=== PATIENT | female | born 2005 | race Caucasian/White ===

== ENCOUNTER 2025-04-22 18:17 | Inpatient (IN) ==
[2025-04-22 18:49] LABS: Hematocrit (blood only) 39.1 % (37.0-47.0); Hemoglobin 13.3 g/dl (12.0-16.0); Immature Granulocytes # (auto) 0.01 K/uL (0.01-0.20); Immature Granulocytes % (auto) 0.1 %; Mean Corpuscular Hemoglobin 30.5 pg (25.0-34.0); Mean Corpuscular Volume 89.7 fL (80.0-100.0); Platelet Count 220 K/uL (130-400); RDW Standard Deviation 40.3 fL (36.4-46.3); Red Blood Count 4.36 M/uL (4.20-5.40); White Blood Count 7.69 K/ul (4.8-10.8)
[2025-04-22] MEDS: ALBUT/IPRATROP 3MG/0.5MG NEB 3 ML VIAL NEB STA (18:52)
--- NOTE | 2025-04-22 18:53 | Emergency Department Note ---
ED Provider Note History of Present Illness Chief Complaint: Chest Pain Stated Complaint: CHEST PAIN, SOB, DIFFICULTY SWALLOWING Time Seen by Provider: 04/22/25 18:38 Source: patient Mode of arrival: ambulatory Limitations: no limitations Patient is a 20-year-old female who presents to the emergency department with complaints of shortness of breath, difficulty swallowing and chest pain. Patient states that she was seen at [facility] yesterday and had lab work and imaging done and noted that everything was normal per their report and she was told that she had an upper respiratory infection, however the patient felt that her symptoms had worsened over the course of the day today and she wanted to be reevaluated. The patient notes a history of asthma when she was a child but denies any respiratory issues now. 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 Current Living Situation: Parent Feels Safe at Home: Yes Safety Concerns: Feels Safe At This Time Physical Exam Vital Signs Vital Signs - 24 hr 04/22/25 18:19 04/22/25 18:34 04/22/25 18:49 Temperature 36.6 C Temperature Source Temporal Artery Scan Pulse Rate 75 77 Pulse Rate [Left Apical] 78 Respiratory Rate 20 21 Respiratory Effort / Characteristics Non-Labored Spontaneous Non-Labored Spontaneous Respiratory Depth Normal Normal Respiratory Pattern Regular Regular Blood Pressure 111/73 Blood Pressure [Left Arm] Blood Pressure [Right Arm] 109/79 Blood Pressure Mean 85 Blood Pressure Mean [Left Arm] Blood Pressure Mean [Right Arm] 89 Pulse Oximetry 97 98 Oxygen Delivery Method Room Air Room Air Sepsis Recent Fever Within 48 Hours No Sepsis New/Unexplained Change in Mental Status N/A Sepsis Action Taken by Nursing No Action Required 04/22/25 19:00 04/22/25 19:24 04/22/25 19:30 Temperature Temperature Source Pulse Rate 80 83 Pulse Rate [Left Apical] Respiratory Rate 21 21 Respiratory Effort / Characteristics Respiratory Depth Respiratory Pattern Blood Pressure 106/67 Blood Pressure [Left Arm] Blood Pressure [Right Arm] 114/62 Blood Pressure Mean 80 Blood Pressure Mean [Left Arm] Blood Pressure Mean [Right Arm] 79 Pulse Oximetry 100 99 Oxygen Delivery Method Room Air Room Air Sepsis Recent Fever Within 48 Hours Sepsis New/Unexplained Change in Mental Status Sepsis Action Taken by Nursing 04/22/25 19:39 04/22/25 19:45 04/22/25 19:56 Temperature Temperature Source Pulse Rate 84 81 Pulse Rate [Left Apical] 79 Respiratory Rate 14 17 20 Respiratory Effort / Characteristics Non-Labored Spontaneous Respiratory Depth Normal Respiratory Pattern Regular Blood Pressure Blood Pressure [Left Arm] 119/77 Blood Pressure [Right Arm] Blood Pressure Mean Blood Pressure Mean [Left Arm] 91 Blood Pressure Mean [Right Arm] Pulse Oximetry 98 99 100 Oxygen Delivery Method Room Air Room Air Room Air Sepsis Recent Fever Within 48 Hours Sepsis New/Unexplained Change in Mental Status Sepsis Action Taken by Nursing 04/22/25 20:03 04/22/25 20:39 04/22/25 21:00 Temperature Temperature Source Pulse Rate 70 79 Pulse Rate [Left Apical] Respiratory Rate 18 16 Respiratory Effort / Characteristics Respiratory Depth Respiratory Pattern Blood Pressure 122/73 110/66 Blood Pressure [Left Arm] 108/41 L Blood Pressure [Right Arm] Blood Pressure Mean 89 80 Blood Pressure Mean [Left Arm] 63 Blood Pressure Mean [Right Arm] Pulse Oximetry 100 99 Oxygen Delivery Method Room Air Room Air Sepsis Recent Fever Within 48 Hours Sepsis New/Unexplained Change in Mental Status Sepsis Action Taken by Nursing 04/22/25 21:15 04/22/25 21:30 04/22/25 22:09 Temperature Temperature Source Pulse Rate 64 77 70 Pulse Rate [Left Apical] Respiratory Rate 17 15 17 Respiratory Effort / Characteristics Respiratory Depth Respiratory Pattern Blood Pressure 107/69 111/61 Blood Pressure [Left Arm] Blood Pressure [Right Arm] Blood Pressure Mean 81 77 Blood Pressure Mean [Left Arm] Blood Pressure Mean [Right Arm] Pulse Oximetry 98 97 97 Oxygen Delivery Method Room Air Room Air Room Air Sepsis Recent Fever Within 48 Hours Sepsis New/Unexplained Change in Mental Status Sepsis Action Taken by Nursing 04/22/25 22:32 04/22/25 22:33 Temperature Temperature Source Pulse Rate 75 69 Pulse Rate [Left Apical] Respiratory Rate 14 Respiratory Effort / Characteristics Respiratory Depth Respiratory Pattern Blood Pressure Blood Pressure [Left Arm] Blood Pressure [Right Arm] Blood Pressure Mean Blood Pressure Mean [Left Arm] Blood Pressure Mean [Right Arm] Pulse Oximetry 98 Oxygen Delivery Method Room Air Sepsis Recent Fever Within 48 Hours Sepsis New/Unexplained Change in Mental Status Sepsis Action Taken by Nursing VITAL SIGNS - Vital signs and nursing notes were reviewed. GENERAL -20-year-old female appearing their stated age, who is in no acute distress. Communicates well with provider and answers questions appropriately. Patient's mother is at bedside. HEAD - Normocephalic, Atraumatic. EYES - PERRL with EOMI bilaterally. Sclera anicteric. Conjunctiva pink and moist with no injection noted. EARS - No deformities of external structures noted on gross examination bilaterally. MOUTH/OROPHARYNX - Without perioral cyanosis. Buccal mucosa pink and moist and without leukoplakia. Patient's airway is patent. No evidence of erythema or exudate in her throat. NECK - Neck with FROM. Supple to palpation. Mild lymphadenopathy noted. LUNGS - Chest wall symmetric without accessory muscle use, intercostals retractions, or central cyanosis. Normal vesicular breath sounds CTA B/L. No wheezes, rales, or rhonchi appreciated. Patient's lung sounds were clear however mildly diminished throughout, it appeared that the patient was working hard to take deep breaths. CARDIAC - RRR with S1/S2. No murmur, rubs, or gallops appreciated. PSYCH - A&Ox3 and cooperates fully with examiner. Pt is very pleasant and interacts well with examiner Course Administered Medications Heparin Sodium/Dextrose (Heparin 50938 Unit/500 Ml D5w) 25,000 units in 500 mls @ 21 mls/hr IV .[id number] [facility]; Protocol Stop: 05/22/25 23:44 Last Titration: 04/23/25 07:39 Dose: 1,050 units/hr, 21 mls/hr Documented By: NICHOLAS Co-signed By: CARLOS ENRIQUE Admin: 04/23/25 00:26 Dose: 1,050 units/hr, 21 mls/hr Documented By: MICHELE Co-signed By: ROMINA Discontinued Medications Albuterol (Albut/Ipratrop 3mg/0.5mg Neb 3 Ml Vial) 3 ml NEB NOW STA; Protocol Stop: 04/22/25 18:47 Last Admin: 04/22/25 18:52 Dose: 3 ml Documented By: KEN Albuterol (Albuterol Hfa 8 Gm Inhaler) 2 puffs INH NOW ONE Stop: 04/22/25 23:00 Last Admin: 04/22/25 23:27 Dose: Not Given Documented By: JESUS Heparin Sodium (Porcine) (Heparin Sod (Porcine) 1000 Unit/Ml) 1 units IV NOW ONE Stop: 04/22/25 23:44 Last Admin: 04/23/25 00:26 Dose: 5,000 units Documented By: MICHELE Co-signed By: ROMINA Heparin Sodium/Dextrose (Heparin Iv Adult Wt-Based Standard W/ Initial Bolus Protocol) 1 each IV NOW STA; Protocol Stop: 04/22/25 23:28 Last Admin: 04/23/25 00:31 Dose: 1 each Documented By: ROMINA Sodium Chloride (Nss) 1,000 mls @ 60 mls/hr IV .[id number] ONE Stop: 04/23/25 16:23 Last Admin: 04/22/25 23:53 Dose: Not Given Documented By: JESUS Potassium Chloride/Sodium Chloride (Normal Saline W/20 Meq Kcl) 20 meq in 1,000 mls @ 100 mls/hr IV .Q10H ONE Stop: 04/22/25 10:14 Last Admin: 04/23/25 00:26 Dose: 100 mls/hr Documented By: MICHELE Ioversol (Optiray 320 125ml) 73 ml IV ONCE ONE Stop: 04/22/25 19:53 Last Admin: 04/22/25 19:53 Dose: 73 ml Documented By: DEL Medical Decision Making Differential Diagnosis COVID, influenza, enterovirus/rhinovirus, pneumonia, pulmonary emboli, pneumothorax, pleural effusion, among others Medical Records Attestation: I reviewed the patient's medical records. Home Medications was personally reviewed by me Laboratory Data Attestation: I reviewed the patient's lab results. 04/23/25 06:28 04/23/25 06:28 Lab Results 11/02/25 Range/Units 18:32 WBC 7.69 (4.8-10.8) K/ul RBC 4.36 (4.20-5.40) M/uL Hgb 13.3 (12.0-16.0) g/dl Hct 39.1 (37.0-47.0) % MCV 89.7 (80.0-100.0) fL MCH 30.5 (25.0-34.0) pg MCHC 34.0 (32.0-36.0) g/dL RDW Std Deviation 40.3 (36.4-46.3) fL RDW Coeff of Kishan 12.3 (11.5-14.5) % Plt Count 220 (130-400) K/uL MPV 9.3 L (9.4-12.4) fL Immature Gran % (Auto) 0.1 % Neut % (Auto) 60.6 % Lymph % (Auto) 32.4 % [place] % (Auto) 6.8 % Eos % (Auto) 0.0 % Baso % (Auto) 0.1 % Neut # (Auto) 4.66 (1.40-6.50) K/uL Lymph # (Auto) 2.49 (1.20-3.40) K/uL [place] # (Auto) 0.52 (0.11-0.59) K/uL Eos # (Auto) 0.00 (0.00-0.50) K/uL Baso # (Auto) 0.01 (0.00-0.20) K/uL Immature Gran # (Auto) 0.01 (0.01-0.20) K/uL D-Dimer 900 H* (0-500) ug/L FEU Sodium 139 (136-145) mmol/L Potassium 3.7 (3.5-5.1) mmol/L Chloride 109 H (98-107) mmol/L Carbon Dioxide 21 (21-32) mmol/L Anion Gap 9 (3-11) BUN 16 (6-23) mg/dl Creatinine 0.83 (0.6-1.2) mg/dl Est Cr Clr Drug Dosing 100.4 ml/min eGFR 102.79 BUN/Creatinine Ratio 19.3 (10-20) Glucose 102 H (70-99(Fasting)) mg/dl Calcium 9.5 (8.6-10.3) mg/dl Magnesium 2.2 (1.7-2.4) mg/dl Total Bilirubin 0.8 (0.2-1.0) mg/dl AST 13 (13-39) U/L ALT 13 (7-52) U/L Alkaline Phosphatase 44 (34-104) U/L Troponin I High Sens < 2.3 (0-14) pg/ml Total Protein 7.3 (6.0-8.3) gm/dl Albumin 4.3 (3.4-5.0) gm/dl Globulin 3.0 (2.5-4.0) gm/dl Albumin/Globulin Ratio 1.4 (0.9-2) Lipase 8 L (11-82) U/L HCG, Qual Negative (Negative) Imaging Data Radiologist's Impression: Chest CTA 04/22/25 19:42 CR Exam(s): CTA CHEST EXAM: CT Angiography Chest With Intravenous Contrast CLINICAL HISTORY: Reason for exam: DDMR 900, PE vs pnuemomediastinum r/o. TECHNIQUE: Axial computed tomographic angiography images of the chest with intravenous contrast. CTDI is 11.8 mGy and DLP is 413.5 mGy-cm. Automated exposure control was utilized for the study. A dose lowering technique was utilized adhering to the principles of ALARA. MIP reconstructed images were created and reviewed. COMPARISON: None FINDINGS: Pulmonary arteries: Pulmonary emboli in the subsegmental pulmonary arteries to the left upper lobe. Aorta: No acute findings. No aortic aneurysm or dissection. Lungs: Unremarkable. No mass. No consolidation. Pleural space: Unremarkable. No significant effusion. No pneumothorax. Heart: Unremarkable. No cardiomegaly. No significant pericardial effusion. No evidence of RV dysfunction. Mediastinum: Pneumomediastinum with gas extending along the pleural fissures. Etiology is not clearly identified on this exam. Bones/joints: No acute fracture. No dislocation. Soft tissues: Unremarkable. Lymph nodes: Unremarkable. No enlarged lymph nodes. IMPRESSION: 1. Pulmonary emboli in the subsegmental pulmonary arteries to the left upper lobe. 2. Pneumomediastinum with gas extending along the pleural fissures. Etiology is not clearly identified on this exam. 3. No aortic aneurysm or dissection. Communications: Call Doctor Vanna Electronically signed by: Sharifa Kolb M.D. 04/22/25 23:11 PM MDM Narrative Patient is a 20-year-old female who presents to the emergency department with complaints of shortness of breath, difficulty swallowing and chest pain. Patient states that she was seen at [facility] yesterday and had lab work and imaging done and noted that everything was normal per their report and she was told that she had an upper respiratory infection, however the patient felt that her symptoms had worsened over the course of the day today and she wanted to be reevaluated. The patient notes a history of asthma when she was a child but denies any respiratory issues now. Patient was evaluated by myself and findings were noted in the physical exam above. Patient was ordered IV placement, lab work, chest xray, EKG and D-dimer. Patient's lab work resulted with a normal white blood cell count of 7.69. Patient had no indication of anemia with a hemoglobin of 13.3 and hematocrit of 39.1. Patient had no significant electrolyte imbalance noted. Patient had an EKG completed and it was interpreted by myself to show the patient in a sinus rhythm with a rate in the 80s. Patient did have a chest x-ray that was completed and interpreted by radiology to show no evidence of pneumonia or pneumothorax. The was some concern for lucency that could be consistent with a pneumomediastinum. The patient does have some chest discomfort. Patient's D- dimer resulted and was elevated at 900. I discussed all these results with the patient and her mother at bedside and they verbalized understanding. I discussed with the patient that it would be advisable to do a CT of the chest to rule out a pulmonary embolism since she is somewhat at risk. The patient does take oral control as well as notes that she uses a vape. The patient had a chest CT completed and interpreted by radiology to note pulmonary emboli in the subsegmental pulmonary arteries to the left upper lobe. There is also pneumomediastinum with gas extending along the pleural fissures. No aortic dissection or aneurysm was noted. I discussed all these findings with the patient and her mother at bedside who verbalized understanding standing. The patient was concerned about finding of pulmonary emboli in her chest CT today as she was told by [facility] yesterday that that D-dimer level was normal but I reassured the patient that we would monitor and manage it here in the hospital and started on heparin drip. The patient verbalized understanding and is agreeable to the plan for admission to the hospital. Patient was ordered a heparin drip, weight-based, at this time. [facility] and spoke with Dr. Padgett. I gave him a full report on the patient's chief complaint, current status and the results of her imaging and lab work. He verbalized understanding and asked that I reach out to pulmonology to make them aware of this patient and discuss whether they are comfortable with this patient staying in the hospital here at [facility]. I reached out and spoke with Dr. Hooper. I gave him a full report of the patient's chief complaint, current status and the results of her imaging and lab work. He verbalized understanding and did not feel that there is anything that need to be done tonight. He verbalized understanding patient is stable and is not requiring any oxygen or intervention. He was agreeable to being consulted [facility] as needed for his assistance. I reached back out to Dr. Padgett and made him aware, he verbalized understanding and agreed to admit the patient under his service. [facility] documentation for further evaluation and management of this patient. Impression Shortness of breath, Pulmonary emboli, Pneumomediastinum Discharge Plan Visit Data Chief Complaint: Chest Pain Stated Complaint: CHEST PAIN, SOB, DIFFICULTY SWALLOWING ED Provider: Kaelyn Moscoso ED Midlevel Provider: Kyra Beth Discharge Problem: Shortness of breath, Pulmonary emboli, Pneumomediastinum Patient Disposition: Admitted As Inpatient Condition: Fair Discharge Instructions Interventions: ED Discharge Assessment Last Done: 04/23/25 00:37 ED DC CONDITION Conditon at Discharge Condition at Discharge: Fair Discharge Problem: Pulmonary emboli Qualifiers: Pulmonary embolism type: multiple subsegmental (without acute cor pulmonale) Q ualified Code(s): I26.94 - Multiple subsegmental thrombotic pulmonary emboli without acute cor pulmonale
[2025-04-22 19:08] LABS: Alanine Aminotransferase 13 U/L (7-52); Albumin Globulin Ratio 1.4 (0.9-2); Albumin Level 4.3 gm/dl (3.4-5.0); Alkaline Phosphatase 44 U/L (34-104); Anion Gap 9 (3-11); Bilirubin,Total 0.8 mg/dl (0.2-1.0); Blood Urea Nitrogen 16 mg/dl (6-23); Calcium 9.5 mg/dl (8.6-10.3); Carbon Dioxide 21 mmol/L (21-32); Chloride 109 mmol/L (98-107); Creatinine Clr Calc Pharmacy 100.4 ml/min; Globulin 3.0 gm/dl (2.5-4.0); Glucose 102 mg/dl (70-99(Fasting)); Lipase 8 U/L (11-82); Potassium 3.7 mmol/L (3.5-5.1); Sodium 139 mmol/L (136-145); Total Protein 7.3 gm/dl (6.0-8.3)
[2025-04-22 19:10] LABS: Pregnancy Test, Serum Negative (Negative)
--- NOTE | 2025-04-22 19:25 | XRay Report ---
EXAM: Portable AP chest radiograph TECHNIQUE: AP portable radiograph of the chest was obtained. INDICATION: Chest pain Comparison: None FINDINGS: LINES and TUBES: None CARDIOVASCULAR: Cardiac silhouette is normal in size. LUNGS/PLEURA: No focal consolidation identified. Peribronchial cuffing that may be due to reactive small airways disease versus bronchiolitis. No significant pleural fluid. No discernible pneumothorax. OSSEOUS/OTHER: No displaced acute osseous process identified. There is a thin rind of lucency surrounding the cardiomediastinal silhouette, most likely representing mach effect artifact. IMPRESSION: No focal consolidation identified. Peribronchial cuffing that may be due to reactive small airways disease versus bronchiolitis. There is a thin rind of lucency surrounding the cardiomediastinal silhouette, most likely representing mach effect artifact. However if there is concern for a pneumomediastinum, CT may be considered for exclusion Electronically signed by Noel Lopez 04-22-2025 7:25 PM
[2025-04-22] MEDS: OPTIRAY 320 125ml IV ONE (19:53)
--- NOTE | 2025-04-22 23:12 | CT Scan Report ---
Exam(s): CTA CHEST EXAM: CT Angiography Chest With Intravenous Contrast CLINICAL HISTORY: Reason for exam: DDMR 900, PE vs pnuemomediastinum r/o. TECHNIQUE: Axial computed tomographic angiography images of the chest with intravenous contrast. CTDI is 11.8 mGy and DLP is 413.5 mGy-cm. Automated exposure control was utilized for the study. A dose lowering technique was utilized adhering to the principles of ALARA. MIP reconstructed images were created and reviewed. COMPARISON: None FINDINGS: Pulmonary arteries: Pulmonary emboli in the subsegmental pulmonary arteries to the left upper lobe. Aorta: No acute findings. No aortic aneurysm or dissection. Lungs: Unremarkable. No mass. No consolidation. Pleural space: Unremarkable. No significant effusion. No pneumothorax. Heart: Unremarkable. No cardiomegaly. No significant pericardial effusion. No evidence of RV dysfunction. Mediastinum: Pneumomediastinum with gas extending along the pleural fissures. Etiology is not clearly identified on this exam. Bones/joints: No acute fracture. No dislocation. Soft tissues: Unremarkable. Lymph nodes: Unremarkable. No enlarged lymph nodes. IMPRESSION: 1. Pulmonary emboli in the subsegmental pulmonary arteries to the left upper lobe. 2. Pneumomediastinum with gas extending along the pleural fissures. Etiology is not clearly identified on this exam. 3. No aortic aneurysm or dissection. Communications: Call Doctor Pneumomediastinum Electronically signed by: Sharifa Kolb M.D. 04/22/25 23:11 PM
[2025-04-22] MEDS: ALBUTEROL HFA 8 GM INHALER INH ONE (23:27)
--- NOTE | 2025-04-22 23:43 | History & Physical Report ---
Date of Service April 22, 2025 Assessment & Plan (1) Chest pain: Plan: Assessment and plan below following discussion of case with ED provider and reviewing patient history/pertinent normal/abnormal diagnostic test results. Chest pain Acute pulmonary embolism with associated pneumomediastinum New onset Provoking factors include vape use and OCP Rule out LE clot as source Admit to med/tele IV heparin LE venous Dopplers rule out DVT Pulmonology consult re: pulmonary embolism with pneumomediastinum (ED provider already in touch with Dr. Hooper.) Patient to contact fire department marine engineer for alternative method for contraception. Patient counseled regarding hazards of vape use. DVT prophylaxis. IV heparin Full code Patient mother requesting updates providers. Ms. Tatiana Weinberg, contact #[phone]. Text document was generated using [employer] voice recognition software. It may contain grammatical or spelling errors. Kindly contact undersigned for clarification of any documentation item in question. History of Present Illness Chief Complaint: Chest pain, shortness of breath Primary Care Provider: GRIS Agustin History obtained from patient, family, and records. Medical history significant for childhood asthma, ongoing vape use. 2 days ago, patient noted pleuritic chest pain associated with SOB. No cough symptoms. No abdominal pain. No unusual leg swelling. No recent prolonged vehicular travel. No prior personal history/family history of blood clots. Patient consulted [facility]. Chest x-ray and labs normal as per patient/family. Patient told symptoms might just be from URTI. Patient brought to ER by mother today for worsening symptoms. IV heparin initiated for PE on CAT scan. Medical History as above Surgical History : Dental surgery, tonsillectomy Family History : DM, pancreatic cancer; no blood clots Personal/Social history : Ongoing vape use, no EtOH intake, college student Allergies Allergy/AdvReac Type Severity Reaction Status Date / Time No Known Allergies Allergy Unverified 04/22/25 23:40 Home Medications Medication Instructions Recorded Confirmed Type norethindrone 1 mg-ethinyl 1 tab PO HS 04/22/25 04/22/25 History estradiol 20 mcg (21)-iron 75 mg (7) tablet (Marisa Fe 07/10 (28)) Past Med/Surg History Problem List (Updated 04/23/25 @ 05:46 by Aidan Early MD) Chest pain Pneumomediastinum (Acute) Pulmonary emboli (Acute) Shortness of breath (Acute) Social History Smoking Status: Current every day smoker Tobacco Type: E-cigarettes / Vaping Hx Alcohol Use: No Hx Substance Use: No Preferred Language: Estonian Splicer Helper Required: No Current Living Situation: Parent Feels Safe at Home: Yes Safety Concerns: Feels Safe At This Time Review of Systems Review of Systems: As per HPI, all other systems reviewed and negative Physical Exam Physical Exam: GENERAL: Comfortable, no respiratory distress SKIN: Normal color, warm HEENT: [place] palpebral conjunctivae, no ptosis, moist buccal mucosa NECK : Supple, no tenderness CHEST : CTA, no tenderness HEART : RRR, no obvious murmurs ABDOMEN: No distention, nontender EXTREMITIES : No LE swelling/tenderness, palpable pulses, no other conspicuous deformities noted NEUROLOGIC : Coherent, no facial asymmetry, no other gross focality Results & Data Results & Data Vital Signs (Past 12 Hours) Vital Signs Temp Pulse Pulse Resp BP BP BP 04/22/25 22:33 69 14 04/22/25 22:32 75 04/22/25 22:09 70 17 111/61 04/22/25 21:30 77 15 107/69 04/22/25 21:15 64 17 04/22/25 21:00 108/41 L 04/22/25 20:39 79 16 110/66 04/22/25 20:03 70 18 122/73 04/22/25 19:56 79 20 119/77 04/22/25 19:45 81 17 04/22/25 19:39 84 14 04/22/25 19:30 114/62 04/22/25 19:24 83 21 04/22/25 19:00 80 21 106/67 04/22/25 18:49 78 21 109/79 04/22/25 18:34 77 04/22/25 18:19 36.6 C 75 20 111/73 Pulse Ox O2 Del Method 04/22/25 22:33 98 Room Air 04/22/25 22:32 04/22/25 22:09 97 Room Air 04/22/25 21:30 97 Room Air 04/22/25 21:15 98 Room Air 04/22/25 21:00 04/22/25 20:39 99 Room Air 04/22/25 20:03 100 Room Air 04/22/25 19:56 100 Room Air 04/22/25 19:45 99 Room Air 04/22/25 19:39 98 Room Air 04/22/25 19:30 04/22/25 19:24 99 Room Air 04/22/25 19:00 100 Room Air 04/22/25 18:49 98 Room Air 04/22/25 18:34 04/22/25 18:19 97 Room Air Laboratory Results Laboratory Results WBC 7.69 K/ul (4.8-10.8) 04/22/25 18:32 RBC 4.36 M/uL (4.20-5.40) 04/22/25 18:32 Hgb 13.3 g/dl (12.0-16.0) 04/22/25 18:32 Hct 39.1 % (37.0-47.0) 04/22/25 18:32 MCV 89.7 fL (80.0-100.0) 04/22/25 18:32 MCH 30.5 pg (25.0-34.0) 04/22/25 18:32 MCHC 34.0 g/dL (32.0-36.0) 04/22/25 18:32 RDW Std Deviation 40.3 fL (36.4-46.3) 04/22/25 18:32 RDW Coeff of Kishan 12.3 % (11.5-14.5) 04/22/25 18:32 Plt Count 220 K/uL (130-400) 04/22/25 18:32 MPV 9.3 fL (9.4-12.4) L 04/22/25 18:32 Immature Gran % (Auto) 0.1 % 04/22/25 18:32 Neut % (Auto) 60.6 % 04/22/25 18:32 Lymph % (Auto) 32.4 % 04/22/25 18:32 Dundy % (Auto) 6.8 % 04/22/25 18:32 Eos % (Auto) 0.0 % 04/22/25 18:32 Baso % (Auto) 0.1 % 04/22/25 18:32 Neut # (Auto) 4.66 K/uL (1.40-6.50) 04/22/25 18:32 Lymph # (Auto) 2.49 K/uL (1.20-3.40) 04/22/25 18:32 Dundy # (Auto) 0.52 K/uL (0.11-0.59) 04/22/25 18:32 Eos # (Auto) 0.00 K/uL (0.00-0.50) 04/22/25 18:32 Baso # (Auto) 0.01 K/uL (0.00-0.20) 04/22/25 18:32 Immature Gran # (Auto) 0.01 K/uL (0.01-0.20) 04/22/25 18:32 D-Dimer 900 ug/L FEU (0-500) H* 04/22/25 18:32 Sodium 139 mmol/L (136-145) 04/22/25 18:32 Potassium 3.7 mmol/L (3.5-5.1) 04/22/25 18:32 Chloride 109 mmol/L (98-107) H 04/22/25 18:32 Carbon Dioxide 21 mmol/L (21-32) 04/22/25 18:32 Anion Gap 9 (3-11) 04/22/25 18:32 BUN 16 mg/dl (6-23) 04/22/25 18:32 Creatinine 0.83 mg/dl (0.6-1.2) 04/22/25 18:32 Est Cr Clr Drug Dosing 100.4 ml/min 04/22/25 18:32 eGFR 102.79 04/22/25 18:32 BUN/Creatinine Ratio 19.3 (10-20) 04/22/25 18:32 Glucose 102 mg/dl (70-99(Fasting)) H 04/22/25 18:32 Calcium 9.5 mg/dl (8.6-10.3) 04/22/25 18:32 Total Bilirubin 0.8 mg/dl (0.2-1.0) 04/22/25 18:32 AST 13 U/L (13-39) 04/22/25 18:32 ALT 13 U/L (7-52) 04/22/25 18:32 Alkaline Phosphatase 44 U/L (34-104) 04/22/25 18:32 Troponin I High Sens < 2.3 pg/ml (0-14) 04/22/25 18:32 Total Protein 7.3 gm/dl (6.0-8.3) 04/22/25 18:32 Albumin 4.3 gm/dl (3.4-5.0) 04/22/25 18:32 Globulin 3.0 gm/dl (2.5-4.0) 04/22/25 18:32 Albumin/Globulin Ratio 1.4 (0.9-2) 04/22/25 18:32 Lipase 8 U/L (11-82) L 04/22/25 18:32 HCG, Qual Negative (Negative) 04/22/25 18:32 Impressions Chest X-Ray 04/22/25 18:39 EXAM: Portable AP chest radiograph TECHNIQUE: AP portable radiograph of the chest was obtained. INDICATION: Chest pain Comparison: None FINDINGS: LINES and TUBES: None CARDIOVASCULAR: Cardiac silhouette is normal in size. LUNGS/PLEURA: No focal consolidation identified. Peribronchial cuffing that may be due to reactive small airways disease versus bronchiolitis. No significant pleural fluid. No discernible pneumothorax. OSSEOUS/OTHER: No displaced acute osseous process identified. There is a thin rind of lucency surrounding the cardiomediastinal silhouette, most likely representing mach effect artifact. IMPRESSION: No focal consolidation identified. Peribronchial cuffing that may be due to reactive small airways disease versus bronchiolitis. There is a thin rind of lucency surrounding the cardiomediastinal silhouette, most likely representing mach effect artifact. However if there is concern for a pneumomediastinum, CT may be considered for exclusion Electronically signed by Noel Lopez 04-22-2025 7:25 PM Chest CTA 04/22/25 19:42 CR Exam(s): CTA CHEST EXAM: CT Angiography Chest With Intravenous Contrast CLINICAL HISTORY: Reason for exam: DDMR 900, PE vs pnuemomediastinum r/o. TECHNIQUE: Axial computed tomographic angiography images of the chest with intravenous contrast. CTDI is 11.8 mGy and DLP is 413.5 mGy-cm. Automated exposure control was utilized for the study. A dose lowering technique was utilized adhering to the principles of ALARA. MIP reconstructed images were created and reviewed. COMPARISON: None FINDINGS: Pulmonary arteries: Pulmonary emboli in the subsegmental pulmonary arteries to the left upper lobe. Aorta: No acute findings. No aortic aneurysm or dissection. Lungs: Unremarkable. No mass. No consolidation. Pleural space: Unremarkable. No significant effusion. No pneumothorax. Heart: Unremarkable. No cardiomegaly. No significant pericardial effusion. No evidence of RV dysfunction. Mediastinum: Pneumomediastinum with gas extending along the pleural fissures. Etiology is not clearly identified on this exam. Bones/joints: No acute fracture. No dislocation. Soft tissues: Unremarkable. Lymph nodes: Unremarkable. No enlarged lymph nodes. IMPRESSION: 1. Pulmonary emboli in the subsegmental pulmonary arteries to the left upper lobe. 2. Pneumomediastinum with gas extending along the pleural fissures. Etiology is not clearly identified on this exam. 3. No aortic aneurysm or dissection. Communications: Call Doctor Pneumomediastinum Electronically signed by: Sharifa Kolb M.D. 04/22/25 23:11 PM Diagnostic Findings EKG as per my interpretation :Rate 70, NSR, normal axis, incomplete RBBB, no ischemia
[2025-04-22] MEDS: SODIUM CHLORIDE 0.9% 1,000 ML IV ONE (23:53)
[2025-04-23 00:02] LABS: Magnesium 2.2 mg/dl (1.7-2.4)
[2025-04-23] MEDS ORDERED: PROMETHAZINE 6.25 MG/50.25 ML BAG IV PRN (00:25)
[2025-04-23] MEDS ORDERED: ACETAMINOPHEN 325 MG TAB PO PRN (00:25)
[2025-04-23] MEDS: HEPARIN SOD (PORCINE) 1000 UNIT/ML IV ONE (00:26)
[2025-04-23] MEDS: HEPARIN 25000 UNIT/500 ML D5W 25,000 UNITS/500 ML BAG IV SCH (00:26)
[2025-04-23] MEDS: NSS + 20MEQ KCL 20 MEQ/1,000 ML BAG IV ONE (00:26)
[2025-04-23] MEDS: Heparin IV Adult Wt-Based Standard w/ INITIAL Bolus Protocol IV STA (00:31)
--- NOTE | 2025-04-23 05:51 | Ultrasound Report ---
EXAM: US venous doppler LE BI CLINICAL HISTORY: pe donis TECHNIQUE: Ultrasound examination of the bilateral lower extremity veins was performed in real time and with duplex imaging. One or more of the following were performed: spectral analysis, resistive index, waveform analysis, and pulsed Doppler. COMPARISON: None. FINDINGS: Normal phasic, non-pulsatile, and spontaneous flow is noted in the bilateral common femoral, superficial femoral, popliteal, posterior and anterior tibial, and peroneal veins. The visualized veins of both lower extremities demonstrate normal compressibility. No sonographic evidence of acute deep vein thrombosis (DVT) is detected in the visualized veins of both lower extremities. Compression and Augmentation: All evaluated veins compress fully with the applied transducer pressure. Augmentation of venous flow is noted with distal compression. Additional Findings: No evidence of intraluminal thrombus. IMPRESSION: No sonographic evidence of acute DVT is detected in the bilateral common femoral, superficial femoral, popliteal, posterior and anterior tibial, and peroneal veins at the time of examination. Disclaimer: DVT could be missed early in the disease when clot burden is minimal. For patients with moderate and high pretest probability of DVT and negative ultrasound, the [employer] clinical guidelines recommend testing with a D-dimer assay or repeat ultrasound in 5-7 days. If symptoms worsen, the Society of radiologists in ultrasound recommends repeating ultrasound even earlier. Electronically signed by Garrick Gatica 04-23-2025 05:50 AM
[2025-04-23 06:47] LABS: Hematocrit (blood only) 34.4 % (37.0-47.0); Hemoglobin 11.5 g/dl (12.0-16.0); Mean Corpuscular Hemoglobin 30.3 pg (25.0-34.0); Mean Corpuscular Volume 90.8 fL (80.0-100.0); Platelet Count 179 K/uL (130-400); RDW Standard Deviation 40.8 fL (36.4-46.3); Red Blood Count 3.79 M/uL (4.20-5.40); White Blood Count 5.81 K/ul (4.8-10.8)
[2025-04-23 07:12] LABS: ANTI-Xa, UFH(UnfractionatedHep 0.49 IU/ml (0.3-0.7); Anion Gap 7.0 (3-11); Blood Urea Nitrogen 14.0 mg/dl (6-23); Calcium 8.7 mg/dl (8.6-10.3); Carbon Dioxide 22.0 mmol/L (21-32); Chloride 112.0 mmol/L (98-107); Creatinine Clr Calc Pharmacy 105.5 ml/min; Glucose 99.0 mg/dl (70-99(Fasting)); Potassium 4.0 mmol/L (3.5-5.1); Sodium 141.0 mmol/L (136-145)
[2025-04-23 07:13] LABS: Immature Granulocytes # (auto) 0.01 K/uL (0.01-0.20); Immature Granulocytes % (auto) 0.2 %
[2025-04-23 11:35] LABS: Amphetamines+Metham, Urine Neg (Neg); MDMA (Ecstacy), Urine Neg (Neg); Marijuana, Urine Neg (Neg)
--- NOTE | 2025-04-23 11:50 | Electrocardiogram Report ---
Test Reason : Blood Pressure : */* mmHG Vent. Rate : 65 BPM Atrial Rate : 65 BPM P-R Int : 142 ms QRS Dur : 96 ms QT Int : 366 ms P-R-T Axes : 50 37 39 degrees QTcB Int : 380 ms Normal sinus rhythm with sinus arrhythmia RSR' or QR pattern in V1 suggests right ventricular conduction delay Borderline ECG No previous ECGs available Confirmed by Pasquale Tejeda ([id number]) on 04/23/2025 11:50:34 AM Referred By: Confirmed By: Pasquale Tejeda
--- NOTE | 2025-04-23 11:59 | Critical Care Consultation ---
Date of Consultation April 23, 2025 Assessment & Plan (1) Pneumomediastinum: (2) Pulmonary emboli: (3) Shortness of breath: (4) Chest pain: Plan Tia Weinberg is a 20-year-old female with no significant past medical history other than menthol vape use and estrogen containing oral contraceptive use; who presented to [facility] [address] ED on 04/22/2025 for chest pain and shortness of breath. Chest CTA was performed which showed bilateral emboli in the subsegmental pulmonary arteries predominantly on the left side. Subsegmental Pulmonary emboli possibly provoked by estrogen containing oral contraceptive v. other. -Hypercoagulable workup pending -Urine drug screen negative -Therapeutic on heparin gtt @ 1050. Goal Anti-Xa 0.4-0.7. -No signs of right heart strain. Hemodynamically stable. Trop negative. BNP 25. -Can transition to oral AC Eliquis and Xarelto. At least 3 months. -Will need to change Oral contraceptive to safer alternative. Recommend follow up with [facility]. -Will need outpatient Hematology follow up. Vaping -Recommend cessation of vaping. Pneumomediastinum -Noted on CTA chest with air extending into the fissures. -No clear etiology. Denies coughing, vomiting, retching. -Continue supportive care. Thank you for allowing us to participate in this patient's care. Please feel free to reach out with questions or concerns. 48 minutes is the time spent reviewing the chart, obtaining history, performing the physical exam, and updating the patient, family, and bedside nurse. Supervising Physician Co-Signing Physician Notes I have seen and evaluated the patient with the BIOMEDICAL ENGINEER. I agree with the documented findings and plan in addition to the following. Patient is a 20-year-old female with limited past medical history. She presented to the hospital with chest pain and shortness of breath. D-dimer was elevated. CT of the chest showed bilateral pulmonary emboli and subsegmental arteries. Troponin was not elevated. Patient was vitally stable on room air, heart rate less than 110 and normotensive. Pneumomediastinum was also appreciated. The patient was started on heparin infusion. test was negative. Pulmonary has been consulted. I personally reviewed her CT imaging. She has some subsegmental PEs. There is also evidence of pneumomediastinum. I evaluated the patient today at bedside, family was present including both parents and grandmother. The patient denies any personal history of blood clots. No recent travel. No recent procedures. 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 She is active and healthy, works out and lifts weights regularly. She says she has not been able to lift recently because she has been studying more for her finals. The only home medication that she takes is control, she has been on the same control for many years and has not changed this recently. She has no personal history of miscarriages, there is no family history of blood clots or clotting disorders. No autoimmune disorders either. No history of malignancy in first-degree relatives. She denies any recent trauma or falls. She has not been ill recently with any respiratory illnesses or coughing much. She was coughing on the way to the ER but she was doing this on purpose because she thought she was having a heart attack. She does carry a history of childhood asthma, she has not been on inhalers for almost 10 years. She does not have any respiratory symptoms including wheezing, cold air and exercise do not cause any dyspnea. Urine drug screen was negative. She does endorse vaping but does not smoke cigarettes. Viral PCR is negative. Patient is being treated appropriately with anticoagulation for low risk PE. Cardiac enzymes are not elevated. Vitally stable. Upon discharge the patient will need Eliquis, given the unclear etiology of her PE we will plan on at least 6 months of therapy unless otherwise recommended by hematology after workup has been complete. I have ordered a hypercoagulable workup including homocystine level, protein C, protein S, Antithrombin, factor V Leiden, prothrombin and anticardiolipin. These will need to be followed up in the outpatient setting. The patient should avoid vaping or smoking. I would recommend stopping her oral control at this time and using alternative forms of control/abstinence until she is evaluated by hematology/oncology. She needs to see hematology and oncology in the next few weeks in the outpatient setting. I do appreciate a cardiac murmur on exam. I will obtain an echocardiogram. Please ensure that this is performed prior to discharge. Given the patient's pneumomediastinum I would like to follow-up with her in clinic in approximately 2 weeks. Please ensure that she has a follow-up visit with me. We will get a chest x-ray at that time. In the meantime the patient should avoid heavy straining or lifting. She should not fly or scuba dive. No contact sports or strenuous exercise. Thank you for this consult. I will sign off and follow-up in the outpatient setting. Please call me with any questions. History of Present Illness Reason for Consultation: Pulmonary Embolism Attending Physician: Matthew Nicholson MD History of Present Illness Tia Weinberg is a 20-year-old female with no significant past medical history other than menthol vape use and estrogen containing oral contraceptive use; who presented to [facility] [address] ED on 04/22/2025 for chest pain and shortness of breath. Patient states that on Wednesday she was trying to take a nap and could not catch her breath she also noted chest pain. Of note the patient described an episode 4 weeks ago where she was in a lab for class and felt like she was going to pass out and vomit. Patient laid down and drank something and the feeling past. Upon presentation to [facility] ED a chest CTA was performed which showed bilateral emboli in the subsegmental pulmonary arteries predominantly on the left side. Patient was hemodynamically stable without signs of right heart strain. A heparin gtt was started and patient to the Hospitalist service with Pulmonary consulted for subsegmental PE requiring anticoagulation. Patient has no history or family history of clotting disorder. Patient denies illicit drug use. Endorses using a menthol vape. On a combination estrogen-progestin containing oral contraceptive norethindrone- ethinyl. Denies and prolonged travel or immobility. Allergies Allergy/AdvReac Type Severity Reaction Status Date / Time No Known Allergies Allergy Unverified 04/22/25 23:40 Home Medications Medication Instructions Recorded Confirmed Type norethindrone 1 mg-ethinyl 1 tab PO HS 04/22/25 04/22/25 History estradiol 20 mcg (21)-iron 75 mg (7) tablet (Marisa Fe 07/10 ()) Patient History Social History Smoking Status: Current every day smoker Tobacco Type: E-cigarettes / Vaping Hx Alcohol Use: No Hx Substance Use: No Preferred Language: Turkmen Communication Ability: Effective Hybrid Technologist Required: No Current Living Situation: Parent Feels Safe at Home: Yes Safety Concerns: Feels Safe At This Time Assistive Devices: None Review of Systems 2 Review of Systems: All systems reviewed & are unremarkable except as noted in HPI & below Physical Exam 2 Physical Exam: VITALS: Reviewed. WEIGHT/BMI reviewed. GEN: Healthy appearing, well-developed, NAD. PSYCH: Good Judgment. AOx3. Normal memory, mood, and affect. HEENT -Head: NC/AT; -Eyes: PERRL, EOMI. No discharge or redn ess; -Ears: External ears are normal. -Nose: Normal nares. NECK: Supple, with no masses. CV: RRR, no m/r/g. LUNGS: CTAB, no w/r/c. ABD: N/V : N/A SKIN: Warm, well perfused. No skin rashes or abnormal lesions. MSK: No deformities, Normal gait. EXT: No clubbing, cyanosis, or edema. NEURO: Normal muscle strength and tone. No focal deficits. Results & Data Results & Data Vital Signs (Past 12 Hours) Vital Signs Pulse Pulse Resp BP BP Pulse Ox Pulse Ox 04/23/25 07:04 80 04/23/25 07:00 71 16 123/77 98 04/23/25 06:05 64 20 111/62 98 04/23/25 04:24 86 18 110/63 98 04/23/25 02:30 99 04/23/25 02:16 73 04/23/25 02:00 101 H 20 117/65 99 04/23/25 01:00 75 20 112/62 97 O2 Del Method O2 Del Method 04/23/25 07:04 04/23/25 07:00 Room Air 04/23/25 06:05 Room Air 04/23/25 04:24 Room Air 04/23/25 02:30 Room Air 04/23/25 02:16 04/23/25 02:00 Room Air 04/23/25 01:00 Room Air Laboratory Results 04/23/25 06:28 04/23/25 06:28 Abnormal Lab Results 04/22/25 04/23/25 04/23/25 18:32 06:28 08:06 WBC 7.69 5.81 RBC 4.36 3.79 L Hgb 13.3 11.5 L Hct 39.1 34.4 L MCV 89.7 90.8 MCH 30.5 30.3 MCHC 34.0 33.4 RDW Std Deviation 40.3 40.8 RDW Coeff of Kishan 12.3 12.4 Plt Count 220 179 MPV 9.3 L 9.2 L Immature Gran % (Auto) 0.1 0.2 Neut % (Auto) 60.6 43.4 Lymph % (Auto) 32.4 50.6 Wilkinson % (Auto) 6.8 5.2 Eos % (Auto) 0.0 0.3 Baso % (Auto) 0.1 0.3 Neut # (Auto) 4.66 2.52 Lymph # (Auto) 2.49 2.94 Wilkinson # (Auto) 0.52 0.30 Eos # (Auto) 0.00 0.02 Baso # (Auto) 0.01 0.02 Immature Gran # (Auto) 0.01 0.01 D-Dimer 900 H* Heparin Anti-Xa, Unfract 0.49 Sodium 139 141 Potassium 3.7 4.0 Chloride 109 H 112 H Carbon Dioxide 21 22 Anion Gap 9 7 BUN 16 14 Creatinine 0.83 0.79 Est Cr Clr Drug Dosing 100.4 105.5 eGFR 102.79 109.07 BUN/Creatinine Ratio 19.3 17.7 Glucose 102 H 99 Calcium 9.5 8.7 Magnesium 2.2 Total Bilirubin 0.8 AST 13 ALT 13 Alkaline Phosphatase 44 Troponin I High Sens < 2.3 B-Natriuretic Peptide 25 Total Protein 7.3 Albumin 4.3 Globulin 3.0 Albumin/Globulin Ratio 1.4 Lipase 8 L HCG, Qual Negative Urine Opiates Screen Ur Methadone, Qual Urine Fentanyl Screen Urine Barbiturates Ur Phencyclidine (PCP) U Amphetamin/Meth Scrn MDMA (Ecstasy) Screen U Benzodiazepines Scrn Ur Cocaine Metabolite U Marijuana (THC) Screen 04/23/25 09:49 WBC RBC Hgb Hct MCV MCH MCHC RDW Std Deviation RDW Coeff of Kishan Plt Count MPV Immature Gran % (Auto) Neut % (Auto) Lymph % (Auto) Wilkinson % (Auto) Eos % (Auto) Baso % (Auto) Neut # (Auto) Lymph # (Auto) Wilkinson # (Auto) Eos # (Auto) Baso # (Auto) Immature Gran # (Auto) D-Dimer Heparin Anti-Xa, Unfract Sodium Potassium Chloride Carbon Dioxide Anion Gap BUN Creatinine Est Cr Clr Drug Dosing eGFR BUN/Creatinine Ratio Glucose Calcium Magnesium Total Bilirubin AST ALT Alkaline Phosphatase Troponin I High Sens B-Natriuretic Peptide Total Protein Albumin Globulin Albumin/Globulin Ratio Lipase HCG, Qual Urine Opiates Screen Neg Ur Methadone, Qual Neg Urine Fentanyl Screen Neg Urine Barbiturates Neg Ur Phencyclidine (PCP) Neg U Amphetamin/Meth Scrn Neg MDMA (Ecstasy) Screen Neg U Benzodiazepines Scrn Neg Ur Cocaine Metabolite Neg U Marijuana (THC) Screen Neg Diagnostic Findings 04/23/25 04/23/25 04/23/25 Range/Units 09:49 08:06 07:47 WBC (4.8-10.8) K/ul RBC (4.20-5.40) M/uL Hgb (12.0-16.0) g/dl Hct (37.0-47.0) % MCV (80.0-100.0) fL MCH (25.0-34.0) pg MCHC (32.0-36.0) g/dL RDW Std Deviation (36.4-46.3) fL RDW Coeff of Kishan (11.5-14.5) % Plt Count (130-400) K/uL MPV (9.4-12.4) fL Immature Gran % (Auto) % Neut % (Auto) % Lymph % (Auto) % Wilkinson % (Auto) % Eos % (Auto) % Baso % (Auto) % Neut # (Auto) (1.40-6.50) K/uL Lymph # (Auto) (1.20-3.40) K/uL Wilkinson # (Auto) (0.11-0.59) K/uL Eos # (Auto) (0.00-0.50) K/uL Baso # (Auto) (0.00-0.20) K/uL Immature Gran # (Auto) (0.01-0.20) K/uL D-Dimer (0-500) ug/L FEU Protein C Antigen Pending Protein C Activity Pending Protein S Activity Pending Total Protein S Ag Pending Free Protein S Antigen Pending Antithrombin III Ag Pending Antithrombin III Activ Pending Heparin Anti-Xa, Unfract (0.3-0.7) IU/ml Factor V Leiden Mutat Pending Factor V Leiden Interp Pending Sodium (136-145) mmol/L Potassium (3.5-5.1) mmol/L Chloride (98-107) mmol/L Carbon Dioxide (21-32) mmol/L Anion Gap (3-11) BUN (6-23) mg/dl Creatinine (0.6-1.2) mg/dl Est Cr Clr Drug Dosing ml/min eGFR BUN/Creatinine Ratio (10-20) Glucose (70-99(Fasting)) mg/dl Calcium (8.6-10.3) mg/dl Magnesium (1.7-2.4) mg/dl Total Bilirubin (0.2-1.0) mg/dl AST (13-39) U/L ALT (7-52) U/L Alkaline Phosphatase (34-104) U/L Troponin I High Sens (0-14) pg/ml B-Natriuretic Peptide 25 (0-100) pg/ml Total Protein (6.0-8.3) gm/dl Albumin (3.4-5.0) gm/dl Globulin (2.5-4.0) gm/dl Albumin/Globulin Ratio (0.9-2) Lipase (11-82) U/L Homocysteine Pending HCG, Qual (Negative) Urine Opiates Screen Neg (Neg) Ur Methadone, Qual Neg (Neg) Urine Fentanyl Screen Neg (Neg) Urine Barbiturates Neg (Neg) Ur Phencyclidine (PCP) Neg (Neg) U Amphetamin/Meth Scrn Neg (Neg) MDMA (Ecstasy) Screen Neg (Neg) U Benzodiazepines Scrn Neg (Neg) Ur Cocaine Metabolite Neg (Neg) U Marijuana (THC) Screen Neg (Neg) Beta-2-GPI IgG Ab Pending Beta-2-GPI IgA Ab Pending Beta-2-GPI IgM Ab Pending Phosphatidyl&Prothr IgG Pending Phosphatidyl&Prothr IgM Pending Anti-Phospholipid Intrp Pending Anti-Cardiolipin IgG Ab Pending Anti-Cardiolipin IgA Ab Pending Anti-Cardiolipin IgM Ab Pending Influenza A (RT-PCR) Pending Influenza B (RT-PCR) Pending RSV (RT-PCR) Pending Prothrombin Gene Mutate Pending Prothromb Gene Comment Pending 04/23/25 04/22/25 Range/Units 06:28 18:32 WBC 5.81 7.69 (4.8-10.8) K/ul RBC 3.79 L 4.36 (4.20-5.40) M/uL Hgb 11.5 L 13.3 (12.0-16.0) g/dl Hct 34.4 L 39.1 (37.0-47.0) % MCV 90.8 89.7 (80.0-100.0) fL MCH 30.3 30.5 (25.0-34.0) pg MCHC 33.4 34.0 (32.0-36.0) g/dL RDW Std Deviation 40.8 40.3 (36.4-46.3) fL RDW Coeff of Kishan 12.4 12.3 (11.5-14.5) % Plt Count 179 220 (130-400) K/uL MPV 9.2 L 9.3 L (9.4-12.4) fL Immature Gran % (Auto) 0.2 0.1 % Neut % (Auto) 43.4 60.6 % Lymph % (Auto) 50.6 32.4 % Wilkinson % (Auto) 5.2 6.8 % Eos % (Auto) 0.3 0.0 % Baso % (Auto) 0.3 0.1 % Neut # (Auto) 2.52 4.66 (1.40-6.50) K/uL Lymph # (Auto) 2.94 2.49 (1.20-3.40) K/uL Wilkinson # (Auto) 0.30 0.52 (0.11-0.59) K/uL Eos # (Auto) 0.02 0.00 (0.00-0.50) K/uL Baso # (Auto) 0.02 0.01 (0.00-0.20) K/uL Immature Gran # (Auto) 0.01 0.01 (0.01-0.20) K/uL D-Dimer 900 H* (0-500) ug/L FEU Protein C Antigen Protein C Activity Protein S Activity Total Protein S Ag Free Protein S Antigen Antithrombin III Ag Antithrombin III Activ Heparin Anti-Xa, Unfract 0.49 (0.3-0.7) IU/ml Factor V Leiden Mutat Factor V Leiden Interp Sodium 141 139 (136-145) mmol/L Potassium 4.0 3.7 (3.5-5.1) mmol/L Chloride 112 H 109 H (98-107) mmol/L Carbon Dioxide 22 21 (21-32) mmol/L Anion Gap 7 9 (3-11) BUN 14 16 (6-23) mg/dl Creatinine 0.79 0.83 (0.6-1.2) mg/dl Est Cr Clr Drug Dosing 105.5 100.4 ml/min eGFR 109.07 102.79 BUN/Creatinine Ratio 17.7 19.3 (10-20) Glucose 99 102 H (70-99(Fasting)) mg/dl Calcium 8.7 9.5 (8.6-10.3) mg/dl Magnesium 2.2 (1.7-2.4) mg/dl Total Bilirubin 0.8 (0.2-1.0) mg/dl AST 13 (13-39) U/L ALT 13 (7-52) U/L Alkaline Phosphatase 44 (34-104) U/L Troponin I High Sens < 2.3 (0-14) pg/ml B-Natriuretic Peptide (0-100) pg/ml Total Protein 7.3 (6.0-8.3) gm/dl Albumin 4.3 (3.4-5.0) gm/dl Globulin 3.0 (2.5-4.0) gm/dl Albumin/Globulin Ratio 1.4 (0.9-2) Lipase 8 L (11-82) U/L Homocysteine HCG, Qual Negative (Negative) Urine Opiates Screen (Neg) Ur Methadone, Qual (Neg) Urine Fentanyl Screen (Neg) Urine Barbiturates (Neg) Ur Phencyclidine (PCP) (Neg) U Amphetamin/Meth Scrn (Neg) MDMA (Ecstasy) Screen (Neg) U Benzodiazepines Scrn (Neg) Ur Cocaine Metabolite (Neg) U Marijuana (THC) Screen (Neg) Beta-2-GPI IgG Ab Beta-2-GPI IgA Ab Beta-2-GPI IgM Ab Phosphatidyl&Prothr IgG Phosphatidyl&Prothr IgM Anti-Phospholipid Intrp Anti-Cardiolipin IgG Ab Anti-Cardiolipin IgA Ab Anti-Cardiolipin IgM Ab Influenza A (RT-PCR) Influenza B (RT-PCR) RSV (RT-PCR) Prothrombin Gene Mutate Prothromb Gene Comment Coding Level of Care Code 26916 IN/OBS CONSULT LVL 4,60M Diagnoses Pneumomediastinum J98.2 Pulmonary emboli I26.94 Pulmonary embolism type: multiple subsegmental (without acute cor pulmonale) Shortness of breath R06.02 Chest pain R07.9 (2) Pulmonary emboli Pulmonary embolism type: multiple subsegmental (without acute cor pulmonale) Qualified Code(s): I26.94 - Multiple subsegmental thrombotic pulmonary emboli without acute cor pulmonale
[2025-04-23 12:53] LABS: Influenza A virus by PCR Negative (Neg); Influenza B virus by PCR Negative (Neg); SARS CoV2 RNA(COVID-19) Ceph NEGATIVE (Negative)
[2025-04-23 13:41] LABS: ANTI-Xa, UFH(UnfractionatedHep 0.32 IU/ml (0.3-0.7)
--- NOTE | 2025-04-23 16:42 | Hospitalist Progress Note ---
Date of Service April 23, 2025 Assessment & Plan (1) Chest pain: Plan: Per admitting provider w/ addendum: Acute pulmonary embolism with associated pneumomediastinum New onset Chest pain 2/2 above Provoking factors include vape use and OCP Rule out LE clot as source Admitted to med/tele IV heparin LE venous Dopplers rule out DVT - negat. for DVT Pulmonology consult re: pulmonary embolism with pneumomediastinum (ED provider already in touch with Dr. Hooper.) Pt seen by Dr. German today (pulm), echo ordered, plan to follow up with the pt as outpt Hypercoag. work up ordered Hematology follow up recommended as well. No flying , scubadiving or contact sports. Patient to contact um specialist for alternative method for contraception. Patient counseled regarding hazards of vape use. DVT prophylaxis. IV heparin Full code Patient mother - Ms. Tatiana Weinberg, contact #[phone]. Admission and Anticipated Discharge Date Admission Date: April 22, 2025 Subjective Pt seen in follow up of PE/ pneumomediastinum Currently lying in bed in NAD Denies any chest pain at this time or shortness of breath Denies abd. pain Review of Systems Review of Systems: All systems reviewed & are unremarkable except as noted in Subjective Physical Exam Physical Exam: GENERAL: Comfortable, no respiratory distress SKIN: Normal color, warm HEENT: NC/AT NECK : Supple CHEST : CTAB HEART : RRR ABDOMEN: No distention, nontender, soft EXTREMITIES : No LE swelling/tenderness, moves extremities NEUROLOGIC : awake, alert, answers appropriately. no facial asymmetry, speech fluent, moves extremities Results & Data Results & Data Vital Signs (Past 12 Hours) Vital Signs Temp Pulse Pulse Resp BP BP Pulse Ox 04/23/25 16:19 36.9 C 71 17 109/67 97 04/23/25 12:09 81 17 123/70 99 04/23/25 07:04 80 04/23/25 07:00 71 16 123/77 98 04/23/25 06:05 64 20 111/62 98 O2 Del Method 04/23/25 16:19 Room Air 04/23/25 12:09 Room Air 04/23/25 07:04 04/23/25 07:00 Room Air 04/23/25 06:05 Room Air Laboratory Results 04/23/25 04/23/2504/23/25 Range/Units 12:43 09:49 08:06 WBC (4.8-10.8) K/ul RBC (4.20-5.40) M/uL Hgb (12.0-16.0) g/dl Hct (37.0-47.0) % MCV (80.0-100.0) fL MCH (25.0-34.0) pg MCHC (32.0-36.0) g/dL RDW Std Deviation (36.4-46.3) fL RDW Coeff of Kishan (11.5-14.5) % Plt Count (130-400) K/uL MPV (9.4-12.4) fL Immature Gran % (Auto) % Neut % (Auto) % Lymph % (Auto) % [place] % (Auto) % Eos % (Auto) % Baso % (Auto) % Neut # (Auto) (1.40-6.50) K/uL Lymph # (Auto) (1.20-3.40) K/uL [place] # (Auto) (0.11-0.59) K/uL Eos # (Auto) (0.00-0.50) K/uL Baso # (Auto) (0.00-0.20) K/uL Immature Gran # (Auto) (0.01-0.20) K/uL D-Dimer (0-500) ug/L FEU Protein C Antigen Pending Protein C Activity Pending Protein S Activity Pending Total Protein S Ag Pending Free Protein S Antigen Pending Antithrombin III Ag Pending Antithrombin III Activ Pending Heparin Anti-Xa, Unfract 0.32 (0.3-0.7) IU/ml Factor V Leiden Mutat Pending Factor V Leiden Interp Pending Sodium (136-145) mmol/L Potassium (3.5-5.1) mmol/L Chloride (98-107) mmol/L Carbon Dioxide (21-32) mmol/L Anion Gap (3-11) BUN (6-23) mg/dl Creatinine (0.6-1.2) mg/dl Est Cr Clr Drug Dosing ml/min eGFR BUN/Creatinine Ratio (10-20) Glucose (70-99(Fasting)) mg/dl Calcium (8.6-10.3) mg/dl Magnesium (1.7-2.4) mg/dl Total Bilirubin (0.2-1.0) mg/dl AST (13-39) U/L ALT (7-52) U/L Alkaline Phosphatase (34-104) U/L Troponin I High Sens (0-14) pg/ml B-Natriuretic Peptide 25 (0-100) pg/ml Total Protein (6.0-8.3) gm/dl Albumin (3.4-5.0) gm/dl Globulin (2.5-4.0) gm/dl Albumin/Globulin Ratio (0.9-2) Lipase (11-82) U/L Homocysteine Pending HCG, Qual (Negative) Urine Opiates Screen Neg (Neg) Ur Methadone, Qual Neg (Neg) Urine Fentanyl Screen Neg (Neg) Urine Barbiturates Neg (Neg) Ur Phencyclidine (PCP) Neg (Neg) U Amphetamin/Meth Scrn Neg (Neg) MDMA (Ecstasy) Screen Neg (Neg) U Benzodiazepines Scrn Neg (Neg) Ur Cocaine Metabolite Neg (Neg) U Marijuana (THC) Screen Neg (Neg) Beta-2-GPI IgG Ab Pending Beta-2-GPI IgA Ab Pending Beta-2-GPI IgM Ab Pending Phosphatidyl&Prothr IgG Pending Phosphatidyl&Prothr IgM Pending Anti-Phospholipid Intrp Pending Anti-Cardiolipin IgG Ab Pending Anti-Cardiolipin IgA Ab Pending Anti-Cardiolipin IgM Ab Pending SARS-CoV-2 (PCR) (Negative) Influenza A (RT-PCR) Influenza Type A (PCR) (Neg) Influenza B (RT-PCR) Influenza Type B (PCR) (Neg) RSV (RT-PCR) Prothrombin Gene Mutate Pending Prothromb Gene Comment Pending 04/23/25 04/23/25 04/23/25 Range/Units 07:47 07:47 06:28 WBC 5.81 (4.8-10.8) K/ul RBC 3.79 L (4.20-5.40) M/uL Hgb 11.5 L (12.0-16.0) g/dl Hct 34.4 L (37.0-47.0) % MCV 90.8 (80.0-100.0) fL MCH 30.3 (25.0-34.0) pg MCHC 33.4 (32.0-36.0) g/dL RDW Std Deviation 40.8 (36.4-46.3) fL RDW Coeff of Kishan 12.4 (11.5-14.5) % Plt Count 179 (130-400) K/uL MPV 9.2 L (9.4-12.4) fL Immature Gran % (Auto) 0.2 % Neut % (Auto) 43.4 % Lymph % (Auto) 50.6 % [place] % (Auto) 5.2 % Eos % (Auto) 0.3 % Baso % (Auto) 0.3 % Neut # (Auto) 2.52 (1.40-6.50) K/uL Lymph # (Auto) 2.94 (1.20-3.40) K/uL [place] # (Auto) 0.30 (0.11-0.59) K/uL Eos # (Auto) 0.02 (0.00-0.50) K/uL Baso # (Auto) 0.02 (0.00-0.20) K/uL Immature Gran # (Auto) 0.01 (0.01-0.20) K/uL D-Dimer (0-500) ug/L FEU Protein C Antigen Protein C Activity Protein S Activity Total Protein S Ag Free Protein S Antigen Antithrombin III Ag Antithrombin III Activ Heparin Anti-Xa, Unfract 0.49 (0.3-0.7) IU/ml Factor V Leiden Mutat Factor V Leiden Interp Sodium 141 (136-145) mmol/L Potassium 4.0 (3.5-5.1) mmol/L Chloride 112 H (98-107) mmol/L Carbon Dioxide 22 (21-32) mmol/L Anion Gap 7 (3-11) BUN 14 (6-23) mg/dl Creatinine 0.79 (0.6-1.2) mg/dl Est Cr Clr Drug Dosing 105.5 ml/min eGFR 109.07 BUN/Creatinine Ratio 17.7 (10-20) Glucose 99 (70-99(Fasting)) mg/dl Calcium 8.7 (8.6-10.3) mg/dl Magnesium (1.7-2.4) mg/dl Total Bilirubin (0.2-1.0) mg/dl AST (13-39) U/L ALT (7-52) U/L Alkaline Phosphatase (34-104) U/L Troponin I High Sens (0-14) pg/ml B-Natriuretic Peptide (0-100) pg/ml Total Protein (6.0-8.3) gm/dl Albumin (3.4-5.0) gm/dl Globulin (2.5-4.0) gm/dl Albumin/Globulin Ratio (0.9-2) Lipase (11-82) U/L Homocysteine HCG, Qual (Negative) Urine Opiates Screen (Neg) Ur Methadone, Qual (Neg) Urine Fentanyl Screen (Neg) Urine Barbiturates (Neg) Ur Phencyclidine (PCP) (Neg) U Amphetamin/Meth Scrn (Neg) MDMA (Ecstasy) Screen (Neg) U Benzodiazepines Scrn (Neg) Ur Cocaine Metabolite (Neg) U Marijuana (THC) Screen (Neg) Beta-2-GPI IgG Ab Beta-2-GPI IgA Ab Beta-2-GPI IgM Ab Phosphatidyl&Prothr IgG Phosphatidyl&Prothr IgM Anti-Phospholipid Intrp Anti-Cardiolipin IgG Ab Anti-Cardiolipin IgA Ab Anti-Cardiolipin IgM Ab SARS-CoV-2 (PCR) NEGATIVE (Negative) Influenza A (RT-PCR) Cancelled Influenza Type A (PCR) Negative (Neg) Influenza B (RT-PCR) Cancelled Influenza Type B (PCR) Negative (Neg) RSV (RT-PCR) Negative Cancelled Prothrombin Gene Mutate Prothromb Gene Comment 04/22/25 Range/Units 18:32 WBC 7.69 (4.8-10.8) K/ul RBC 4.36 (4.20-5.40) M/uL Hgb 13.3 (12.0-16.0) g/dl Hct 39.1 (37.0-47.0) % MCV 89.7 (80.0-100.0) fL MCH 30.5 (25.0-34.0) pg MCHC 34.0 (32.0-36.0) g/dL RDW Std Deviation 40.3 (36.4-46.3) fL RDW Coeff of Kishan 12.3 (11.5-14.5) % Plt Count 220 (130-400) K/uL MPV 9.3 L (9.4-12.4) fL Immature Gran % (Auto) 0.1 % Neut % (Auto) 60.6 % Lymph % (Auto) 32.4 % [place] % (Auto) 6.8 % Eos % (Auto) 0.0 % Baso % (Auto) 0.1 % Neut # (Auto) 4.66 (1.40-6.50) K/uL Lymph # (Auto) 2.49 (1.20-3.40) K/uL [place] # (Auto) 0.52 (0.11-0.59) K/uL Eos # (Auto) 0.00 (0.00-0.50) K/uL Baso # (Auto) 0.01 (0.00-0.20) K/uL Immature Gran # (Auto) 0.01 (0.01-0.20) K/uL D-Dimer 900 H* (0-500) ug/L FEU Protein C Antigen Protein C Activity Protein S Activity Total Protein S Ag Free Protein S Antigen Antithrombin III Ag Antithrombin III Activ Heparin Anti-Xa, Unfract (0.3-0.7) IU/ml Factor V Leiden Mutat Factor V Leiden Interp Sodium 139 (136-145) mmol/L Potassium 3.7 (3.5-5.1) mmol/L Chloride 109 H (98-107) mmol/L Carbon Dioxide 21 (21-32) mmol/L Anion Gap 9 (3-11) BUN 16 (6-23) mg/dl Creatinine 0.83 (0.6-1.2) mg/dl Est Cr Clr Drug Dosing 100.4 ml/min eGFR 102.79 BUN/Creatinine Ratio 19.3 (10-20) Glucose 102 H (70-99(Fasting)) mg/dl Calcium 9.5 (8.6-10.3) mg/dl Magnesium 2.2 (1.7-2.4) mg/dl Total Bilirubin 0.8 (0.2-1.0) mg/dl AST 13 (13-39) U/L ALT 13 (7-52) U/L Alkaline Phosphatase 44 (34-104) U/L Troponin I High Sens < 2.3 (0-14) pg/ml B-Natriuretic Peptide (0-100) pg/ml Total Protein 7.3 (6.0-8.3) gm/dl Albumin 4.3 (3.4-5.0) gm/dl Globulin 3.0 (2.5-4.0) gm/dl Albumin/Globulin Ratio 1.4 (0.9-2) Lipase 8 L (11-82) U/L Homocysteine HCG, Qual Negative (Negative) Urine Opiates Screen (Neg) Ur Methadone, Qual (Neg) Urine Fentanyl Screen (Neg) Urine Barbiturates (Neg) Ur Phencyclidine (PCP) (Neg) U Amphetamin/Meth Scrn (Neg) MDMA (Ecstasy) Screen (Neg) U Benzodiazepines Scrn (Neg) Ur Cocaine Metabolite (Neg) U Marijuana (THC) Screen (Neg) Beta-2-GPI IgG Ab Beta-2-GPI IgA Ab Beta-2-GPI IgM Ab Phosphatidyl&Prothr IgG Phosphatidyl&Prothr IgM Anti-Phospholipid Intrp Anti-Cardiolipin IgG Ab Anti-Cardiolipin IgA Ab Anti-Cardiolipin IgM Ab SARS-CoV-2 (PCR) (Negative) Influenza A (RT-PCR) Influenza Type A (PCR) (Neg) Influenza B (RT-PCR) Influenza Type B (PCR) (Neg) RSV (RT-PCR) Prothrombin Gene Mutate Prothromb Gene Comment Medications Administered Current Inpatient Medications Acetaminophen (Acetaminophen 325 Mg Tab) 650 mg PO QID PRN PRN Reason: pain/fever Stop: 05/23/25 00:24 Hydroxyzine HCl (Hydroxyzine Hcl 10 Mg Tab) 10 mg PO QID PRN PRN Reason: Anxiety Stop: 05/23/25 00:24 Heparin Sodium/Dextrose (Heparin 28437 Unit/500 Ml D5w) 25,000 units in 500 mls @ 21 mls/hr IV .[id number] [facility]; Protocol Stop: 05/22/25 23:44 Last Titration: 04/23/25 13:48 Dose: 1,050 units/hr, 21 mls/hr Promethazine HCl (Phenergan) 6.25 mg in 50.25 mls @ 201 mls/hr IV Q6H PRN PRN Reason: Nausea And Vomiting Stop: 05/23/25 00:24 Oxycodone HCl (Oxycodone Hcl Ir 5 Mg Tab (Immediate Release)) 5 mg PO Q4H PRN PRN Reason: Pain Stop: 05/07/25 00:24
[2025-04-23 19:50] LABS: ANTI-Xa, UFH(UnfractionatedHep 0.31 IU/ml (0.3-0.7)
[2025-04-24 06:55] LABS: Hematocrit (blood only) 36.8 % (37.0-47.0); Hemoglobin 12.3 g/dl (12.0-16.0); Mean Corpuscular Hemoglobin 30.3 pg (25.0-34.0); Mean Corpuscular Volume 90.6 fL (80.0-100.0); Platelet Count 172 K/uL (130-400); RDW Standard Deviation 40.6 fL (36.4-46.3); Red Blood Count 4.06 M/uL (4.20-5.40); White Blood Count 4.53 K/ul (4.8-10.8)
[2025-04-24 07:14] LABS: Anion Gap 7.0 (3-11); Blood Urea Nitrogen 11.0 mg/dl (6-23); Calcium 9.2 mg/dl (8.6-10.3); Carbon Dioxide 23.0 mmol/L (21-32); Chloride 109.0 mmol/L (98-107); Creatinine Clr Calc Pharmacy 103.8 ml/min; Glucose 91.0 mg/dl (70-99(Fasting)); Magnesium 2.1 mg/dl (1.7-2.4); Potassium 3.9 mmol/L (3.5-5.1); Sodium 139.0 mmol/L (136-145)
[2025-04-24 07:19] LABS: ANTI-Xa, UFH(UnfractionatedHep 0.36 IU/ml (0.3-0.7)
--- NOTE | 2025-04-24 10:53 | XCELERA ---
[id number]
[2025-04-24 11:17] VITALS: BP 106/69; PULSE 89; RESP 17; TEMP 97.7; O2SAT 98
--- NOTE | 2025-04-24 11:31 | Discharge Summary ---
Date of Service April 24, 2025 Admission HPI Per Admitting Provider History obtained from patient, family, and records. Medical history significant for childhood asthma, ongoing vape use. 2 days ago, patient noted pleuritic chest pain associated with SOB. No cough symptoms. No abdominal pain. No unusual leg swelling. No recent prolonged vehicular travel. No prior personal history/family history of blood clots. Patient consulted [facility] Emergency Room. Chest x-ray and labs normal as per patient/family. Patient told symptoms might just be from URTI. Patient brought to ER by mother today for worsening symptoms. IV heparin initiated for PE on CAT scan. Medical History as above Surgical History : Dental surgery, tonsillectomy Family History : DM, pancreatic cancer; no blood clots Personal/Social history : Ongoing vape use, no EtOH intake, college student Admission Exam Per Admitting Provider GENERAL: Comfortable, no respiratory distress SKIN: Normal color, warm HEENT: [place] palpebral conjunctivae, no ptosis, moist buccal mucosa NECK : Supple, no tenderness CHEST : CTA, no tenderness HEART : RRR, no obvious murmurs ABDOMEN: No distention, nontender EXTREMITIES : No LE swelling/tenderness, palpable pulses, no other conspicuous deformities noted NEUROLOGIC : Coherent, no facial asymmetry, no other gross focality Principal Diagnosis Acute PE, pneumomediastinum Discharge Exam GENERAL: Comfortable, no respiratory distress SKIN: Normal color, warm HEENT: NC/AT NECK : Supple CHEST : CTAB HEART : RRR ABDOMEN: No distention, nontender, soft EXTREMITIES : No LE swelling/tenderness, moves extremities NEUROLOGIC : awake, alert, answers appropriately. no facial asymmetry, speech fluent, moves extremities Discharge Data Allergies Allergy/AdvReac Type Severity Reaction Status Date / Time No Known Allergies Allergy Unverified 04/22/25 23:40 Consultations 04/22/25 23:28 ED Decision to Admit Stat 04/23/25 00:36 Consult Pulmonology Routine Ordered Studies 04/22/25 19:42 CT angio chest PE protocol Stat FINDINGS: Pulmonary arteries: Pulmonary emboli in the subsegmental pulmonary arteries to the left upper lobe. Aorta: No acute findings. No aortic aneurysm or dissection. Lungs: Unremarkable. No mass. No consolidation. Pleural space: Unremarkable. No significant effusion. No pneumothorax. Heart: Unremarkable. No cardiomegaly. No significant pericardial effusion. No evidence of RV dysfunction. Mediastinum: Pneumomediastinum with gas extending along the pleural fissures. Etiology is not clearly identified on this exam. Bones/joints: No acute fracture. No dislocation. Soft tissues: Unremarkable. Lymph nodes: Unremarkable. No enlarged lymph nodes. IMPRESSION: 1. Pulmonary emboli in the subsegmental pulmonary arteries to the left upper lobe. 2. Pneumomediastinum with gas extending along the pleural fissures. Etiology is not clearly identified on this exam. 3. No aortic aneurysm or dissection. 04/23/25 00:23 US venous doppler LE BI Routine IMPRESSION: No sonographic evidence of acute DVT is detected in the bilateral common femoral, superficial femoral, popliteal, posterior and anterior tibial, and peroneal veins at the time of examination. Hospital Course (1) Chest pain: Acute pulmonary embolism with associated pneumomediastinum New onset Chest pain secondary to above Provoking factors include vape use and OCP Rule out LE clot as source Admitted to med/tele IV heparin LE venous Dopplers rule out DVT - negat. for DVT Pulmonology consult re: pulmonary embolism with pneumomediastinum (ED provider already in touch with Dr. Hooper.) Pt seen by Dr. German (pul) on 04/23/25, echo ordered, plan to follow up with the pt as outpt in Pulm. clinic in 2 weeks, at that time CXR to be repeated. Echo - LV normal in size. normal LV wall thickness. LV wall motion is normal. LV syst. function is normal. EF 60-65%. There is no valvular disease. RV is normal in size and function. Doppler findings do not suggest pulmonary hypertension. Hypercoag. work up ordered Hematology follow up recommended as well. No flying , scubadiving or contact sports. Patient to contact glove maker for alternative method for contraception. Patient counseled regarding hazards of vape use. Total Time Total Time Spent Total Time Spent (In Minutes): 40 Discharge Plan Discharge Items Patient Disposition: Home - Self-Care Reason For Visit: PE (PRIVATE RM PER REQ) Discharge Diagnosis: Acute PE, pneumomediastinum Condition on Discharge: Fair Activity: As commented below Activity Comment: No heavy lifting. No straining. No flying/scuba diving. Lifting: No more than 10 pounds Bathing: No limitations Exercise/Sports: Wait until after follow-up appointment Driving/Machine Use: No limitations Weightbearing: Full weightbearing Non-emergency contact: Primary Care Provider, Specialist and Tooling Manager Call non-emergency contact if: you have any medication questions and your symptoms worsen Follow-up/Referrals: Darrel Reagan MD [Primary Care Provider] - (Date & Time 04/30/2025 10:00 AM Provider: Stacie Parks CRNP [facility] ) Bre German MD [Physician] - (needs 2 view x-ray at follow up in 2-3 weeks ) Diet: Regular Addtl Attending Provider Instructions: Follow up with primary care doctor within 1 week. Follow up with pulmonology and hematology. Take Eliquis 2 tabs (10 mg) twice a day for 1 week, then take 1 tab (5mg) twice a day for at least 3 months. Pending Studies at Discharge: Yes Studies:: Hypercoag. work up Stand-Alone Forms: My [facility] [place], Smoking Cessation Medications and DC Order Prescriptions: New Eliquis 5 mg tablet 5 mg PO UD Qty: 60 0RF Rx Instructions: Take 2 tabs twice a day for 1 week, then take 1 tab twice a day Discontinued norethindrone-e.estradiol-iron [Marisa Fe 07/10 (28)] 1 mg-20 mcg (21)/75 mg (7) tablet 1 tab PO HS Discharge Orders: Discharge Order (Routine); Ordered 04/24/25 Ordered By: Matthew Nicholson Admission Data Admit Date/Time: 04/22/25 23:48 Attending Provider: Matthew Nicholson Admit Provider: Aidan Early Primary Care Provider: Darrel Reagan Other Providers: Aidan Early; Raul Hooper; Stacie Parks
[2025-04-24] MEDS: APIXABAN 5 MG TABLET PO ONE (12:30)
[2025-04-26 16:12] LABS: Phosphatidylser Prothrom IgG <9 U (<=30); Phosphatidylserine ProthromIgM 15 U (<=30)
[2025-04-28 04:42] LABS: Factor 5 Mutation NEGATIVE
== END 2025-04-24 12:35 | disposition home or self-care (01) | DRG 176 ==
LOC: ED 18:17 → EDINP 23:48 → 2N 04-23 15:20